=== PATIENT | female | born 1930 | race Caucasian/White ===

== ENCOUNTER 2017-01-02 07:45 | Day surgery (SDC) | payer MEDICARE ==
[~2017-01-02] VITALS: Ht 152.4 cm; Wt 63.5 kg
[~2017-01-02 07:45] MED LIST: AMLODIPINE5 MG PO; AUGMENTIN500TAB PO; BACTRIM DS1 TAB PO; FLUARIX QUADRIV1 INJ IM; FLUZONE SPLT1 M1 IM; FOSAMAX PLUS PO; FOSAMAX5 MG OR; HYDROCO/APAP1 T10 PO; INDAPAMIDE2.5 MG PO; KEFLEX500 MG PO; LEXAPRO10 MG PO; LISINOPRIL20 MG PO; METHOCARBAM500 MG PO; MUPIROCIN2 % EX; NAPROSYN375 MG OR; NAPROSYN500 MG PO; NAPROXEN375 MG PO; NEXIUM40 M1 PO; NEXIUM40 MG PO; PREMARIN0.625 MG PO; RESTORIL15 M1 PO; TYLENOL500 MG PO; VICODIN1 TAB OR; ZESTRIL20 MG OR
[2017-01-02 10:25] VITALS: BP 124/60
== END 2017-01-02 10:27 | disposition home or self-care (01) ==
LOC: ORM 07:45
PROVIDERS: ATTEND Anesthesiology Pain Medicine
PROC: 3E0T33Z Introduction of Anti-inflammatory into Peripheral Nerves and Plexi, Percutaneous Approach (ICD-10-PCS; principal; 2017-01-02)
PROC: 3E0T3BZ Introduction of Anesthetic Agent into Peripheral Nerves and Plexi, Percutaneous Approach (ICD-10-PCS; 2017-01-02)
PROC: 3E0T33Z Introduction of Anti-inflammatory into Peripheral Nerves and Plexi, Percutaneous Approach (ICD-10-PCS; 2017-01-02)
PROC: 3E0T3BZ Introduction of Anesthetic Agent into Peripheral Nerves and Plexi, Percutaneous Approach (ICD-10-PCS; 2017-01-02)
DX: M54.5 Low back pain (principal); M48.06 Spinal stenosis, lumbar region

== ENCOUNTER 2017-01-30 07:40 | Day surgery (SDC) | payer MEDICARE ==
[~2017-01-30] VITALS: Ht 152.4 cm; Wt 61.2 kg
[2017-01-30 10:52] VITALS: BP 140/63
== END 2017-01-30 10:08 | disposition home or self-care (01) ==
LOC: ORM 07:40
PROVIDERS: ATTEND Anesthesiology Pain Medicine
PROC: 3E0T3BZ Introduction of Anesthetic Agent into Peripheral Nerves and Plexi, Percutaneous Approach (ICD-10-PCS; principal; 2017-01-30)
PROC: 3E0T33Z Introduction of Anti-inflammatory into Peripheral Nerves and Plexi, Percutaneous Approach (ICD-10-PCS; 2017-01-30)
DX: M54.5 Low back pain (principal); M46.04 Spinal enthesopathy, thoracic region; M46.06 Spinal enthesopathy, lumbar region

== ENCOUNTER 2017-04-24 06:35 | Day surgery (SDC) | payer MEDICARE ==
[~2017-04-24] VITALS: Ht 152.4 cm; Wt 53.1 kg
[2017-04-24 08:32] VITALS: BP 112/55
== END 2017-04-24 08:46 | disposition home or self-care (01) ==
LOC: ORM 06:35
PROVIDERS: ATTEND Anesthesiology Pain Medicine
PROC: 3E0T3CZ (ICD-10-PCS; principal; 2017-04-24)
PROC: 3E0T33Z Introduction of Anti-inflammatory into Peripheral Nerves and Plexi, Percutaneous Approach (ICD-10-PCS; 2017-04-24)
DX: M54.5 Low back pain (principal)

== ENCOUNTER 2017-08-31 14:19 | Inpatient (IN) | payer MEDICARE ==
[~2017-08-31] VITALS: Ht 152.4 cm; Wt 49.8 kg
[2017-08-31 15:01] LABS: HEMOGLOBIN 11.5 g/dl (12.0-16.0); IMMATURE GRANULOCYTES 0.3 % (0.0-1.0); MEAN CELL VOLUME 95.4 fL CALC (80.0-100.0); MEAN CORPUSCULAR HGB 31.3 pG CALC (26.0-32.0); MEAN CORPUSCULAR HGB CONC 32.9 g/L CALC (32.0-36.0); NEUT# 6.35 thou/uL (2.00-7.15); RED BLOOD COUNT 3.67 mill/uL (4.20-5.60); RED CELL DISTRI WIDTH 12.5 % (11.5-15.5)
[2017-08-31 15:10] LABS: ALBUMIN 4.1 g/dL (3.2-5.0); ALKALINE PHOSPHATASE 81 u/l (38-126); ANION GAP 14 (6-22 (CALC)); BILIRUBIN, TOTAL 0.3 mg/dL (0.0-1.4); BUN 25 mg/dL (8-23); BUN/CREATININE RATIO 28 (12-20 (CALC)); CALCIUM 9.6 mg/dL (8.4-10.2); CARBON DIOXIDE 27 mmol/l (22-30); CHLORIDE 99 mmol/l (95-108); CREATININE 0.9 mg/dL (0.5-1.0); GFR 59 ML/MIN (>=60 (CALC)); GFR FOR AFR.AMER. > 60 ML/MIN (>=60 (CALC)); GLUCOSE 133 mg/dL (82-115); POTASSIUM 3.8 mmol/l (3.5-5.1); SGOT/AST 34 u/l (9-36); SGPT/ALT 17 u/l (11-66); SODIUM 136 mmol/l (137-146); TOTAL PROTEIN 6.9 g/dL (6.3-8.2)
[2017-08-31 15:22] LABS: MYOGLOBIN 62 ng/mL (0 - 62)
[2017-08-31 15:52] LABS: URINE BILIRUBIN - DIPSTICK NEGATIVE (NEGATIVE); URINE BLOOD DIPSTICK NEGATIVE (NEGATIVE); URINE COLOR YELLOW; URINE GLUCOSE - DIPSTICK NEGATIVE (NEGATIVE); URINE KETONE NEGATIVE (NEGATIVE); URINE LEUK ESTERASE NEGATIVE (NEGATIVE); URINE NITRITE - DIPSTICK NEGATIVE (Negative); URINE PROTEIN - DIPSTICK NEGATIVE (NEG-TRACE); URINE UROBILINOGEN - DIPSTICK 0.2 E.U./dL (0.2)
[2017-08-31 15:54] LABS: URINE CLARITY CLEAR
[2017-08-31] MEDS ORDERED: PANTOPRAZOLE SO40 MG PO (16:03)
[2017-08-31] MEDS ORDERED: ULTRAM50 M1 PO (16:04)
[2017-08-31] MEDS ORDERED: BACTRIM DS1 TAB PO (16:10)
[2017-08-31 17:57] VITALS: BP 152/69
[2017-08-31 19:20] VITALS: BP 156/62
[2017-09-01 03:40] VITALS: BP 142/57
[2017-09-01 04:45] LABS: HEMOGLOBIN 11.8 g/dl (12.0-16.0); IMMATURE GRANULOCYTES 0.4 % (0.0-1.0); MEAN CELL VOLUME 95.2 fL CALC (80.0-100.0); MEAN CORPUSCULAR HGB 31.2 pG CALC (26.0-32.0); MEAN CORPUSCULAR HGB CONC 32.8 g/L CALC (32.0-36.0); NEUT# 4.35 thou/uL (2.00-7.15); RED BLOOD COUNT 3.78 mill/uL (4.20-5.60); RED CELL DISTRI WIDTH 12.6 % (11.5-15.5)
[2017-09-01 04:54] LABS: ANION GAP 15 (6-22 (CALC)); BUN 18 mg/dL (8-23); BUN/CREATININE RATIO 21 (12-20 (CALC)); CALCIUM 9.8 mg/dL (8.4-10.2); CARBON DIOXIDE 25 mmol/l (22-30); CHLORIDE 102 mmol/l (95-108); CREATININE 0.9 mg/dL (0.5-1.0); GFR 59 ML/MIN (>=60 (CALC)); GFR FOR AFR.AMER. > 60 ML/MIN (>=60 (CALC)); GLUCOSE 99 mg/dL (82-115); POTASSIUM 4.2 mmol/l (3.5-5.1); SODIUM 139 mmol/l (137-146)
[2017-09-01 07:34] VITALS: BP 131/67
[2017-09-01 16:30] VITALS: BP 113/55
[2017-09-01 19:48] VITALS: BP 135/61
[2017-09-02 04:41] VITALS: BP 100/59
[2017-09-02 05:41] LABS: HEMATOCRIT 35.4 % (37.0-47.0); HEMOGLOBIN 11.5 g/dl (12.0-16.0); IMMATURE GRANULOCYTES 0.7 % (0.0-1.0); MEAN CELL VOLUME 94.7 fL CALC (80.0-100.0); MEAN CORPUSCULAR HGB 30.7 pG CALC (26.0-32.0); MEAN CORPUSCULAR HGB CONC 32.5 g/L CALC (32.0-36.0); NEUT# 4.74 thou/uL (2.00-7.15); RED BLOOD COUNT 3.74 mill/uL (4.20-5.60); RED CELL DISTRI WIDTH 12.5 % (11.5-15.5)
[2017-09-02 05:49] LABS: ANION GAP 18 (6-22 (CALC)); BUN 18 mg/dL (8-23); BUN/CREATININE RATIO 20 (12-20 (CALC)); CALCIUM 9.7 mg/dL (8.4-10.2); CALCULATED LDLCHOLESTEROL 105 mg/dL (62-129 (CALC)); CARBON DIOXIDE 23 mmol/l (22-30); CHLORIDE 101 mmol/l (95-108); CHOLESTEROL HDL RATIO 3.4 (<4.4 (CALC)); CREATININE 0.9 mg/dL (0.5-1.0); GFR 59 ML/MIN (>=60 (CALC)); GFR FOR AFR.AMER. > 60 ML/MIN (>=60 (CALC)); GLUCOSE 103 mg/dL (82-115); HDL CHOLESTEROL 51 mg/dL (>=40); MAGNESIUM 2.1 mg/dL (1.6-2.3); POTASSIUM 4.5 mmol/l (3.5-5.1); SODIUM 137 mmol/l (137-146); TOTAL CHOLESTEROL 174 mg/dl (0-199); TOTAL TRIGLYCERIDES 89 mg/dl (30-149); VLDL CHOLESTROL 18 mg/dl (0-48 (CALC))
[2017-09-02 07:30] VITALS: BP 115/50
[2017-09-02 15:43] VITALS: BP 100/50
[2017-09-02 19:10] VITALS: BP 115/60
[2017-09-03 06:05] VITALS: BP 115/56
[2017-09-03 08:52] VITALS: BP 118/51
[2017-09-03] MEDS ORDERED: FLORASTOR250 M1 PO (12:02)
[2017-09-03] MEDS ORDERED: RESTORIL15 M1 PO (12:02)
[2017-09-03] MEDS ORDERED: ULTRAM50 M1 PO (12:02)
== END 2017-09-03 14:25 | DRG 690 ==
LOC: ED 14:19 → ED-I 15:51 → ED 16:11 → MS2 16:12
PROVIDERS: Emergency Medicine; Nurse Practitioner Family; ADMIT Internal Medicine; ATTEND Internal Medicine
DX: N39.0 Urinary tract infection, site not specified (principal); I10 Essential (primary) hypertension; S00.11XA Contusion of right eyelid and periocular area, initial encounter; M19.90 Unspecified osteoarthritis, unspecified site; R63.4 Abnormal weight loss; R32 Unspecified urinary incontinence; R53.81 Other malaise; Z91.14 Patient's other noncompliance with medication regimen; Z68.21 Body mass index [BMI] 21.0-21.9, adult; Z91.81 History of falling; W19.XXXA Unspecified fall, initial encounter; Y92.009 Unspecified place in unspecified non-institutional (private) residence as the place of occurrence of the external cause